=== PATIENT | female | born 1995 | race Caucasian/White ===

== ENCOUNTER → 2017-11-05 | Emergency (ER) | END | disposition home or self-care (01) ==

== ENCOUNTER 2017-12-02 14:03 | Emergency (ER) | END 2017-12-02 15:42 | disposition home or self-care (01) ==

== ENCOUNTER 2018-01-24 21:53 | Emergency (ER) | END 2018-01-25 01:20 | disposition home or self-care (01) ==

== ENCOUNTER 2018-04-11 11:57 | Emergency (ER) | END 2018-04-11 14:57 | disposition left against medical advice (07) ==

== ENCOUNTER 2018-04-11 17:43 | Emergency (ER) | END 2018-04-11 18:45 | disposition home or self-care (01) ==

== ENCOUNTER 2018-11-11 12:07 | Emergency (ER) | payer OTHER ==
[~2018-11-11] VITALS: Wt 71.0 kg
[~2018-11-11 12:07] MED LIST: ACET500C5 PO; ALBU18HF IH; AMOX500C2 PO; BACTDS PO; CEPH-443 PO; CETI10TA19 PO; CLOT30CR24 TOP; CPR3OO3.5 RIGHT EYE; CYCL10TA7 PO; FLUC150T41 PO; GUAI118L94 PO; HYDR-4011 PO; HYDR-843 PO; IBUP-1542 PO; KETO120S3 TOP; MUPI22OI2 TOP; PRED20TA PO
[2018-11-11 12:09] VITALS: BP 105/78; PULSE 78; RESP 18
[2018-11-11] MEDS ORDERED: HYDROCODONE/APAP (5/325) TAB PO ONE (13:00)
[2018-11-11] MEDS ORDERED: IBUP-1542 PO (14:09)
[2018-11-11] MEDS ORDERED: ACET500C5 PO (14:09)
--- NOTE | 2018-11-11 14:14 | ERD ---
ER Documentation Chief Complaint Chief Complaint ABD PAIN WITH VAG BLEED SINCE THIS MORNING DENIES PREG HPI Patient is a 23-year-old female, no past medical history, presents the ER for concerns of pelvic pain along with vaginal bleeding. Patient states her period started 3 days ago. States she had spotting for 2 days and then her period stopped and restarted today. Patient states she is having painful bleeding. Patient denies any fevers or chills. Patient states she feels lightheaded. Patient reports using one tampon every 4 hours. No recent travel. Patient denies any vomiting, diarrhea, rectal bleeding. Patient is sexually active. Patient does not recall her last menstrual. Because she states they are irregular. ROS All systems reviewed and are negative except as per history of present illness. Medications Home Meds Active Scripts Ibuprofen* (Motrin*) 600 Mg Tab, 600 MG PO Q6, #30 TAB Prov:JHOANA VERMA PA-C 11/11/18 Acetaminophen* (Tylophen*) 500 Mg Capsule, 1 CAP PO Q6H PRN for PAIN AND OR ELEVATED TEMP, #20 CAP Prov:JHOANA VERMA PA-C 11/11/18 Ketoconazole* (Ketoconazole*) 2% - 120 Ml Shampoo, 1 APPLIC TOP DAILY for 28 Days, EA WASH HAIR/SCALP AND RINSE OFF Prov:BRENT SEXTON PA-C 04/11/18 Ciprofloxacin Opht* (Ciloxan*) 0.3%-3.5 Opht Oint, 1 APPLIC RIGHT EYE TID for 7 Days, EA Prov:BRENT SEXTON PA-C 04/11/18 Cyclobenzaprine Hcl* (Cyclobenzaprine Hcl*) 10 Mg Tablet, 10 MG PO TID, #15 TAB Prov:JAKOB JAVED NP 01/25/18 Hydrocodone/Acetaminophen (Dunmor 5-325 Tablet) 1 Each Tablet, 1 TAB PO Q6H PRN for SEVERE PAIN LEVEL 7-10, #20 TAB Prov:JAKOB JAVED NP 01/25/18 Ibuprofen* (Motrin*) 600 Mg Tab, 600 MG PO Q6H PRN for PAIN AND OR ELEVATED TEMP, #30 TAB Prov:JAKOB JAVED NP 01/25/18 Clotrimazole* (Clotrimazole* AF) 1% - 30 Gm Cream.gm., 1 APPLIC TOP BID for 7 Days, #1 TUB Prov:LIZBETH INIGUEZ PA-C 12/02/17 Fluconazole* (Fluconazole*) 150 Mg Tablet, 150 MG PO DAILY for 1 Day, TAB Prov:ANTONY ESPINOZA 11/05/17 Cephalexin* (Keflex*) 500 Mg Capsule, 500 MG PO BID for 7 Days, CAP Prov:ANTONY ESPINOZA 11/05/17 Mupirocin* (Bactroban*) 2% -22 Gram Oint...g., 1 APPLIC TOP BID for 7 Days, EA Prov:ANTONY ESPINOZA 11/05/17 Ibuprofen* (Ibuprofen*) 600 Mg Tablet, 600 MG PO Q6H PRN for PAIN AND OR ELEVATED TEMP, #30 TAB Prov:JAKOB JAVED NP 07/02/15 Cetirizine Hcl* (Cetirizine Hcl*) 10 Mg Tablet, 10 MG PO DAILY, #30 TAB Prov:JAKOB JAVED NP 07/02/15 Guaifenesin-Codeine Phosphate* (Guaifenesin* with Codeine Liq) 120 Ml Liquid, 5 ML PO Q4H for COUGH, #60 ML Prov:JAKOB JAVED NP 07/02/15 Hydroxyzine Hcl* (Hydroxyzine Hcl*) 25 Mg Tablet, 25 MG PO Q8H PRN for ITCHING, #30 TAB Prov:JAKOB JAVED NP 05/08/15 Sulfamethoxazole-Trimethoprim* (Bactrim* DS) 800-160 Mg Tab, 1 TAB PO BID for 10 Days, TAB Prov:JAKOB JAVED NP 05/08/15 Clotrimazole* (Clotrimazole* AF) 1% - 30 Gm Cream.gm., 1 APPLIC TOP BID for 14 Days, TUB Prov:DORIS ACE NP 12/31/14 Prednisone* (Prednisone*) 20 Mg Tab, 40 MG PO DAILY for 4 Days, TAB Prov:DANIEL FERNANDEZ MD 12/03/14 Amoxicillin* (Amoxicillin*) 500 Mg Cap, 500 MG PO TID for 10 Days, CAP Prov:DANIEL FERNANDEZ MD 12/03/14 Ibuprofen* (Motrin*) 600 Mg Tab, 600 MG PO Q6, #14 TAB Prov:DANIEL FERNANDEZ MD 12/03/14 Reported Medications Acetaminophen* (Tylophen*) Unknown Strength Capsule, PO Q8H PRN for PAIN AND OR ELEVATED TEMP, #20 CAP 07/02/15 [none] Unknown Strength No Conflict Check 05/08/15 Albuterol Sulfate* (Ventolin HFA*) 18 Gm Hfa.aer.ad, 18 GM IH Q4 PRN 06/14/11 Allergies Allergies: Coded Allergies: clindamycin (Verified Allergy, Severe, RASH, 12/31/14) Uncoded Allergies: PLASTIC TAPE (Allergy, Unknown, 08/02/11) PMhx/Soc History of Surgery: Yes (tonsillectomy) Anesthesia Reaction: No Hx Neurological Disorder: No Hx Respiratory Disorders: Yes (asthma) Hx Cardiac Disorders: No Hx Psychiatric Problems: No Hx Miscellaneous Medical Probl: No Hx Alcohol Use: No Hx Substance Use: No Hx Tobacco Use: No Physical Exam Vitals Vital Signs Date Temp Pulse Resp B/P (MAP) Pulse Ox O2 O2 Flow FiO2 Time Delivery Rate 11/11/18 98.0 78 18 105/78 99 12:09 (87) Physical Exam GENERAL: Well-developed, well-nourished female. Appears in no acute distress. HEAD: Normocephalic, atraumatic. EYES: Pupils are equally reactive bilaterally. EOMs grossly intact. No conjunctival erythema. ENT: Moist mucous membranes. No uvula deviation. No kissing tonsils. NECK: Supple. No meningismus. Normal range of motion of the neck. LUNG: Clear to auscultation bilaterally. No rhonchi, wheezing, rales or coarse breath sounds. HEART: Regular rate and rhythm. No murmurs, rubs or gallops. ABDOMEN: Soft nondistended. Minimally. Tender palpation in the suprapubic region. Positive bowel sounds in all four quadrants. No rebound tenderness, no guarding. (-) McBurney's point tenderness. No CVA tenderness. EXTREMITIES: Equal pulses bilaterally. No peripheral clubbing, cyanosis or ed armond. No unilateral leg swelling. NEUROLOGIC: Alert and oriented. Moving all four extremities without any difficulty. Normal speech. Steady gait. SKIN: Normal color. Warm and dry. No rashes or lesions. Result Diagram: 11/11/18 1323 11/11/18 1323 Results 24 hrs Laboratory Tests Test 11/11/18 13:21 11/11/18 13:23 POC Beta HCG, Qualitative NEGATIVE White Blood Count 10.3 10^3/ul Red Blood Count 4.97 10^6/ul Hemoglobin 13.3 g/dl Hematocrit 39.2 % Mean Corpuscular Volume 78.9 fl Mean Corpuscular Hemoglobin 26.8 pg Mean Corpuscular Hemoglobin Concent 33.9 g/dl Red Cell Distribution Width 12.1 % Platelet Count 283 10^3/UL Mean Platelet Volume 9.6 fl Immature Granulocytes % 0.400 % Neutrophils % 79.3 % Lymphocytes % 13.5 % Monocytes % 5.6 % Eosinophils % 0.9 % Basophils % 0.3 % Nucleated Red Blood Cells % 0.0 /100WBC Immature Granulocytes # 0.040 10^3/ul Neutrophils # 8.2 10^3/ul Lymphocytes # 1.4 10^3/ul Monocytes # 0.6 10^3/ul Eosinophils # 0.1 10^3/ul Basophils # 0.0 10^3/ul Nucleated Red Blood Cells # 0.0 10^3/ul Urine Color YELLOW Urine Clarity SLIGHTLY CLOUDY Urine pH 6.0 Urine Specific [place] 1.020 Urine Ketones 1+ mg/dL Urine Nitrite NEGATIVE mg/dL Urine Bilirubin NEGATIVE mg/dL Urine Urobilinogen NEGATIVE mg/dL Urine Leukocyte Esterase NEGATIVE Breann/ul Urine Microscopic RBC 1 /HPF Urine Microscopic WBC 0 /HPF Urine Squamous Epithelial Cells FEW /HPF Urine Mucus FEW /HPF Urine Hemoglobin NEGATIVE mg/dL Urine Glucose NEGATIVE mg/dL Urine Total Protein NEGATIVE mg/dl Sodium Level 141 mmol/L Potassium Level 3.6 mmol/L Chloride Level 107 mmol/L Carbon Dioxide Level 23 mmol/L Anion Gap 11 Blood Urea Nitrogen 7 mg/dl Creatinine 0.65 mg/dl Est Glomerular Filtrat Rate mL/min > 60 mL/min Glucose Level 109 mg/dl Calcium Level 9.5 mg/dl Total Bilirubin 1.2 mg/dl Direct Bilirubin 0.00 mg/dl Indirect Bilirubin 1.2 mg/dl Aspartate Amino Transf (AST/SGOT) 20 IU/L Alanine Aminotransferase (ALT/SGPT) 23 IU/L Alkaline Phosphatase 78 IU/L Total Protein 8.3 g/dl Albumin 4.7 g/dl Globulin 3.60 g/dl Albumin/Globulin Ratio 1.30 Lipase 73 U/L Current Medications Medications Dose Sig/Andriy Start Time Status Last (Trade) Ordered Route PRN Stop Time Admin Dose Reason Admin 1 tab ONCE ONCE 11/11/18 DC 11/11/18 Acetaminophen PO 13:00 13:17 / 11/11/18 13:01 Hydrocodone Bitart (Dunmor (5/325)) Procedures/MDM MEDICAL DECISION MAKING: This is a 23-year-old female, presents the ER for concerns of pelvic pain along with menstrual bleeding. Vital signs were reviewed. Patient is afebrile. Abdominal exam did reveal mild tenderness to the suprapubic region. Patient no rebound or guarding. Blood work was obtained as patient does report feeling lightheaded. CBC showed no evidence of systemic infection or severe anemia. CMP showed no evidence of electrolyte abnormalities, severe acidosis, alkalosis, renal failure, or liver disease. Lipase showed no evidence of acute pancreatitis. UA showed no evidence of acute infection or hematuria. Low suspicion for UTI, pyelonephritis or nephrolithiasis. Urine test was negative. Patient was given Dunmor for pain. Upon reexamination, patient reports significa nt improvement in symptoms. Patient was advised her symptoms are likely related to menstrual period. Patient advised to follow-up with an FABRIC SEPARATOR OPERATOR for further management of her irregular periods and painful menstrual flow. Differential diagnosis include was not limited to acute coronary syndrome, AAA, mesenteric ischemia, lower lobe pneumonia, DKA, bowel perforation, cholecystitis, choledocholithiasis, ascending cholangitis, hepatic abscess, pancreatitis, PUD, gastritis, GERD, splenic rupture, diverticulitis, UTI, pyelonephritis, nephrolithiasis, appendicitis, constipation, , ectopic , PID, ovarian torsion or tubo-ovarian abscess. PRESCRIPTIONS: Tylenol, ibuprofen DISCHARGE: At this time, patient is stable for discharge and outpatient management. I have instructed the patient to follow-up with his/her primary care physician in 1-2 days. I have instructed the patient to promptly return to the ER at any time for any new or worsening symptoms including increased pain, nausea, vomiting, diarrhea, fever, weakness or LOC. The patient and/or family expressed understan ding of and agreement with this plan. All questions were answered. Home care instructions were provided. Disclaimer: Inadvertent spelling and grammatical errors are likely due to EHR/dictation software use and do not reflect on the overall quality of patient care. Also, please note that the electronic time recorded on this note does not necessarily reflect the actual time of the patient encounter. Departure Diagnosis: Primary Impression: Painful menstrual flow Patient Instructions: Menstruation and Your Child: Talking About Periods Referrals: [facility] YOU HAVE RECEIVED A MEDICAL SCREENING EXAM AND THE RESULTS INDICATE THAT YOU DO NOT HAVE A CONDITION THAT REQUIRES URGENT TREATMENT IN THE EMERGENCY DEPARTMENT. FURTHER EVALUATION AND TREATMENT OF YOUR CONDITION CAN WAIT UNTIL YOU ARE SEEN IN YOUR DOCTORS OFFICE WITHIN THE NEXT 1-2 DAYS. IT IS YOUR RESPONSIBILITY TO MAKE AN APPOINTMENT FOR FOLOW-UP CARE. IF YOU HAVE A PRIMARY DOCTOR --you should call your primary doctor and schedule an appointment IF YOU DO NOT HAVE A PRIMARY DOCTOR YOU CAN CALL OUR PHYSICIAN REFERRAL HOTLINE AT IF YOU CAN NOT AFFORD TO SEE A PHYSICIAN YOU CAN CHOSE FROM THE FOLLOWING [facility] [address] [facility]. [facility] [address] [facility]. [facility] [address] [facility] [address] [facility] [address] [facility]. [facility]. [address] [facility]. [facility] YOU HAVE RECEIVED A MEDICAL SCREENING EXAM AND THE RESULTS INDICATE THAT YOU DO NOT HAVE A CONDITION THAT REQUIRES URGENT TREATMENT IN THE EMERGENCY DEPARTMENT. FURTHER EVALUATION AND TREATMENT OF YOUR CONDITION CAN WAIT UNTIL YOU ARE SEEN IN YOUR DOCTORS OFFICE WITHIN THE NEXT 1-2 DAYS. IT IS YOUR RESPONSIBILITY TO MAKE AN APPOINTMENT FOR FOLOW-UP CARE. IF YOU HAVE A PRIMARY DOCTOR --you should call your primary doctor and schedule and appointment IF YOU DO NOT HAVE A PRIMARY DOCTOR YOU CAN CALL OUR PHYSICIAN REFERRAL HOTLINE AT . IF YOU CAN NOT AFFORD TO SEE A PHYSICIAN YOU CAN CHOSE FROM THE FOLLOWING [facility]: [facility] [address] [place] [address] [facility] [address] [place] [address] [facility] [address] [place] [address] FABRIC SEPARATOR O[place] [address] [facility] [address] [place] [address] OFFICE FAX , [facility] [address] [place] [address] [address] [facility] [address] [place] [address] [address] [facility] [facility] [address] [facility] [facility] [address] [facility] [address] [place] [address] [facility] [address] [place] [address] [phone] [facility] [address] - [place] [address] [facility]. [address], [facility] [address] [address], [place] [address] [facility]. [address], [facility] [address] [address], [facility] [address] [place], [place] [id number] Additional Instructions: Call your primary care doctor TOMORROW for an appointment during the next 1-2 days.See the doctor sooner or return here if your condition worsens before your appointment time. JHOANA VERMA PA-C Nov 11, 2018 14:14
== END 2018-11-11 14:19 | disposition home or self-care (01) ==
LOC: FTE 12:07
DX: N94.6 Dysmenorrhea, unspecified (principal); J45.909 Unspecified asthma, uncomplicated
CPT/HCPCS: 80053; 81001; 81003; 81025; 83690; 85025; Z7502; Z7610; 99283

== ENCOUNTER 2018-12-16 02:17 | Emergency (ER) | payer OTHER ==
[~2018-12-16] VITALS: Ht 162.6 cm; Wt 69.1 kg
[~2018-12-16 02:17] MED LIST changes: +IBUP800T48 PO
[2018-12-16 02:21] VITALS: Ht 162.6 cm; Wt 69.1 kg
[2018-12-16 04:43] VITALS: BP 112/76; PULSE 75; RESP 18
== END 2018-12-16 04:43 | disposition home or self-care (01) ==
LOC: FTE 02:17
DX: R10.2 Pelvic and perineal pain (principal); J45.909 Unspecified asthma, uncomplicated
CPT/HCPCS: 76830; 76856; 80053; 81001; 81025; 83690; 85025; 87086; Z7502